=== PATIENT | female | born 1980 | race Caucasian/White ===

== ENCOUNTER 2016-02-15 05:24 | Observation (INO) | payer OTHER ==
[~2016-02-15] VITALS: Ht 152.4 cm; Wt 78.9 kg
[~2016-02-15 05:24] MED LIST: PREN-20 PO
[2016-02-15] MEDS ORDERED: Carboprost 250 mCg/mL Inj IM PRN (06:00)
[2016-02-15] MEDS ORDERED: Sodium Citrate-Citric Acid 15 mL Solution PO SCH (06:00)
[2016-02-15] MEDS ORDERED: Lactated Ringer's 1,000 ML IV SCH (06:00)
[2016-02-15] MEDS ORDERED: CeFAZolin Inj 2 GM in IV Premix 1 EACH IV SCH (06:00)
[2016-02-15] MEDS ORDERED: Oxytocin 10 Unit/mL Inj IM PRN (06:00)
[2016-02-15] MEDS ORDERED: Methylergonovine 0.2 mg/mL Inj IM PRN (06:00)
[2016-02-15] MEDS ORDERED: Hemorrhage Kit, Post Partum XX ONE (06:00)
[2016-02-15 06:34] LABS: Mean Corpuscular Hemoglobin 32.2 pg (27.0-35.0); Mean Corpuscular Volume 93.2 fL (81-100)
--- NOTE | 2016-02-15 10:00 | PCM.DIOB ---
Obstetrical Disch Instruction Date of Service: Feb 15, 2016 Dates of Hospitalization Date of Hospital Admission Feb 15, 2016 at 05:24 Providers Admitting Physician: Abhishek Baker MD Primary Care Physician: Candido Harrison MD Attending Physician: Abhishek Baekr MD Discharge Diagnosis Discharge Diagnosis Surgery not done on patient due to concerns about bleeding risk. [facility] contacted and she will consult with them tomorrow. Problems: (1) Previous section complicating Status: Acute ICD Code: O34.21 (2) S/P primary low transverse Status: Acute ICD Code: Z98.89 Diet Discharge Diet: No restrictions Activity Discharge Activity-General: No restrictions Additional Instructions [facility] and still have them do her down there this week. She should come in immediately if bleeding or contractions. Follow Up Plan Follow-up Provider (F9): Abhishek Baker MD Call your provider for: Heavy vaginal bleeding Abhishek Baker MD Feb 15, 2016 10:00
--- NOTE | 2016-02-16 17:24 | PCM.DC.OB ---
Obstetrical Discharge Summary Date of Service Feb 15, 2016 Date of hospital admission Feb 15, 2016 at 05:24 Date of Discharge: Feb 15, 2016 Providers Admitting Physician: Abhishek Baker MD Primary Care Physician: Candido Harrison MD Attending Physician: Abhishek Baker MD Problems: (1) Previous section complicating Status: Acute ICD Code: O34.21 (2) S/P primary low transverse Status: Acute ICD Code: Z98.89 Invasive procedures NONE Hospital Course: Patient admitted with the intent to perform a . Risk felt to be too high. Sent home in order to f/u at [facility]. Pnv with Ca,No.71/Iron/FA ( Vitamin Tablet) 1 Each Tablet 1 EACH PO DAILY (Reported) Discharge Diet: No restrictions Discharge Activity-General: Balance rest and activity Patient instructions We will call with appt at [facility]. Abhishek Baker MD Feb 16, 2016 17:24
--- NOTE | 2016-03-31 09:53 | HP ---
[address] [address] HISTORY AND PHYSICAL PATIENT: VIOLA MCCURDY : 1980 MR#: [id number] ADMIT: 02/15/2016 JOB ID: [id number] CHIEF COMPLAINT: Placenta previa. HISTORY OF PRESENT ILLNESS: Please see prior HPI on this patient from my prior H and P from the office. PHYSICAL EXAMINATION: Unchanged from previous. Vital signs stable. IMPRESSION: Multiparous female with placenta previa. PLAN: To do a repeat as stated in my prior H and P.
== END 2016-02-15 09:30 | disposition home or self-care (01) ==
LOC: INTOOBSV 05:24 → FBC 05:24 → EDSTATUS 07:15
PROVIDERS: ADMIT Family Medicine; ATTEND Family Medicine
DX: O44.03 Complete placenta previa NOS or without hemorrhage, third trimester (principal); O34.219 Maternal care for unspecified type scar from previous cesarean delivery; Z3A.36 36 weeks gestation of pregnancy
CPT/HCPCS: 36415; 85027; 86850; G0463